=== PATIENT | male | born 1995 | race American Indian/Alaskan Native ===

== ENCOUNTER 2017-02-26 22:20 | Emergency (ER) | payer SELFPAY ==
[2017-02-26] MEDS ORDERED: HYDROmorphone 1 MG/ML Syringe IVPUSH ONE (23:56)
--- NOTE | 2017-02-27 00:08 | EDM.PDOC ---
ED HPI GENERAL MEDICAL PROBLEM - General Chief Complaint: Lower Extremity Injury/Pain Stated Complaint: POSSIBLE BROKEN FOOT Time Seen by Provider: 02/26/17 23:45 Source of Information: Reports: Patient History Limitations: Reports: No Limitations - History of Present Illness INITIAL COMMENTS - FREE TEXT/NARRATIVE: This 22 yo male patient was brought to the ED by [facility] due to a left ankle injury. Apparently, the patient escaped detention yesterday. During the escape, the patient landed on his foot/ankle and has been in increased pain since that time. Onset Date: 02/25/17 Duration: Constant Location: Reports: Lower Extremity, Left Quality: Reports: Ache, Sharp Severity: Severe Improves with: Reports: None Worsens with: Reports: None Context: Reports: Trauma Associated Symptoms: Reports: No Other Symptoms - Related Data Allergies Allergy/AdvReac Type Severity Reaction Status Date / Time No Known Allergies Allergy Verified 01/06/16 15:17 Home Meds: Home Meds . [No Known Home Meds] 01/06/16 [History] Past Medical History - Past Health History Medical/Surgical History: Denies Medical/Surgical History Social & Family History - Family History Family Medical History: Noncontributory - Tobacco Use Smoking Status *Q: Current Every Day Smoker Years of Tobacco use: 2 Packs/Tins Daily: 1 - Recreational Drug Use Recreational Drug Use: No Review of Systems - Review of Systems Review Of Systems: ROS reveals no pertinent complaints other than HPI. ED EXAM, GENERAL - Physical Exam Exam: See Below Exam Limited By: No Limitations General Appearance: Alert, WD/WN, Moderate Distress, Thin Eye Exam: Bilateral Eye: EOMI, Normal Inspection, PERRL Ears: Normal External Exam, Normal Canal, Hearing Grossly Normal, Normal TMs Nose: Normal Inspection, Normal Mucosa, No Blood Throat/Mouth: Normal Inspection, Normal Lips, Normal Teeth, Normal Gums, Normal Oropharynx, Normal Voice, No Airway Compromise Head: Atraumatic, Normocephalic Neck: Normal Inspection, Supple, Non-Tender, Full Range of Motion Respiratory/Chest: No Respiratory Distress, Lungs Clear, Normal Breath Sounds, No Accessory Muscle Use, Chest Non-Tender Cardiovascular: Normal Peripheral Pulses, Regular Rate, Rhythm, No Edema, No Gallop, No JVD, No Murmur, No Rub GI/Abdominal: Normal Bowel Sounds, Soft, Non-Tender, No Organomegaly, No Distention, No Abnormal Bruit, No Mass (Male) Exam: Deferred Rectal (Males) Exam: Deferred Back Exam: Normal Inspection, Full Range of Motion, NT Extremities: Leg Pain (left ankle and foot pain with swelling. X-ray demonstrates a left, communuted calcaneal fracture) Neurological: Alert Psychiatric: Normal Affect, Normal Mood Lymphatic: No Adenopathy ED TRAUMA EXTREMITY PROCEDURES - Splinting Left Splint Site: Ankle Pre-Procedure NV Status: Normal Post-Procedure NV Status: Normal Splint Material: Fiberglass Splint Design: Volar Applied & Form Fitted By: Provider Provider Post-Splint Application NV Check: NV Status Normal, Good Position Complications: No Course - Orders/Labs/Meds Orders: Active Orders 24 hr Category Date Time Status Ankle Min 3V Lt [CR] Urgent Exams 02/26/17 22:49 Taken Ankle w wo Cont Lt [CT] Urgent Exams 02/26/17 23:53 Ordered Foot Comp Min 3V Lt [CR] Urgent Exams 02/26/17 22:49 Taken Meds: Medications Discontinued Medications Generic Name Dose Route Start Last Admin Trade Name Libradoq PRN Reason Stop Dose Admin Hydromorphone HCl 1 mg 02/26/17 23:56 Dilaudid IVPUSH 02/26/17 23:57 ONETIME ONE Departure - Departure Time of Disposition: 00:19 Disposition: DC/Tfer to Court of Law En 21 Condition: Fair Clinical Impression: Calcaneal fracture Qualifiers: Encounter type: initial encounter Calcaneus location: unspecified portion of calcaneus Fracture type: closed Fracture alignment: displaced Laterality: left Qualified Code(s): S92.002A - Unspecified fracture of left calcaneus, initial encounter for closed fracture - Discharge Information Instructions: Ankle Fracture, [id number] Care Plan Goals: The patient was advised of the examination and x-ray results during the visit. The patient was given an IV dose of Dilaudid (1 mg) and an oral dose of [place] ( 10/325) while in the ED. The patient was given a script for [place] (5/325) #28 to be given 1 by mouth 4 times per day. The patient should follow-up with an photo specialist in 1 week. If the patient has any additional symptoms or concerns, the patient should follow-up with his primary care facility or return to the emergency department. - My Orders Last 24 Hours: My Active Orders 02/26/17 22:49 Ankle Min 3V Lt [CR] Urgent Foot Comp Min 3V Lt [CR] Urgent 02/26/17 23:53 Ankle w wo Cont Lt [CT] Urgent - Assessment/Plan Last 24 Hours: My Active Orders 02/26/17 22:49 Ankle Min 3V Lt [CR] Urgent Foot Comp Min 3V Lt [CR] Urgent 02/26/17 23:53 Ankle w wo Cont Lt [CT] Urgent
[2017-02-27] MEDS ORDERED: Acetaminophen/HYDROcodone 325-10 MG Tab PO ONE (00:36)
== END 2017-02-27 00:49 ==
LOC: DL.ED 22:20
DX: S92.002A Unspecified fracture of left calcaneus, initial encounter for closed fracture (principal); W19.XXXA Unspecified fall, initial encounter; F17.210 Nicotine dependence, cigarettes, uncomplicated; Y93.02 Activity, running
CPT/HCPCS: 29515; 73610; 73630; 73700; 96374; 99285; A9270; J1170; 99284